=== PATIENT | female | born 2000 | race Caucasian/White ===

== ENCOUNTER 2023-09-06 00:28 | Emergency (ER) | payer SELFPAY ==
[2023-09-06 00:36] VITALS: BP 164/102
[2023-09-06 01:06] VITALS: BMI 18.4
[2023-09-06 02:04] LABS: % Basophils 0.5 % (0-2); % Eosinophils 0.2 % (0-6); % Immature Granulocytes 0.2 % (0-0.5); % Lymphocytes 20.5 % (20.5-51.1); % Monocytes 5.8 % (1.7-9.3); % Neutrophils 72.8 % (42.2-75.2); Absolute Basophils 0.1 10^3/uL (0-0.2); Absolute Lymphocytes 2.7 10^3/uL (1.2-3.4); Absolute Monocytes 0.8 10^3/uL (0.1-0.6); Absolute Neutrophils 9.5 10^3/uL (1.4-6.5); Hematocrit 37.3 % (37.0-47.0); Hemoglobin 12.8 g/dL (12.0-16.0); Mean Corp Hgb Conc. 34.3 g/dL (33.0-37.0); Mean Corpuscular Hgb 31.1 pg (27.0-31.0); Mean Corpuscular Volume 90.5 fL (81.0-99.0); Mean Platelet Volume 10.3 fL (7.4-10.4); Nucleated Red Blood Cells % 0 %; Platelet Count 255 10^3/uL (130-400); Red Blood Cell Count 4.12 10^6/uL (4.20-5.40); Red Cell Dist. Width 12.2 % (11.5-14.5); White Blood Cell Count 13.1 10^3/uL (4.8-10.8)
--- NOTE | 2023-09-06 02:07 | ED.GENMED ---
History of Present Illness
General
Chief Complaint: Extremity Pain (non-traumatic)
Source: patient
Exam Limitations: none
Time Seen by Provider: 09/06/23 01:34
Travel History
Have you had any contact with someone who has COVID-19?: No
Do you have any symptoms of coronavirus? Fever > 100 degrees, chills, cough, shortness of breath, sore throat, loss of taste or smell, muscle aches, or headache?: No
History of Present Illness
History of Present Illness:
23-year-old female complaining of tingling in both arms this evening around 11 PM while getting ready for bed. Also was short of breath and hyperventilating apparently during this. Mom confirm the rapid breathing. Has been having intermittent
left arm tingling for months. Sleep feels slightly foggy. No true headache visual issues or other neurologic issues.
Past History
Past History
ED Past Medical History: None
Review of Systems
Review of Systems
All Other Systems: Not applicable
Constitutional: Denies fever
Cardiac: Denies chest pain or syncope
Phy Exam
Physical Exam
Physical Exam:
GENERAL: Alert and oriented in no apparent distress
EYE: Orbits normal. Extraocular muscles intact
NECK: Supple, no carotid bruit
ENT: Pharynx without erythema
CARDIAC: Regular rate and rhythm without any obvious murmurs.
LUNGS: Clear breath sounds,normal
ABDOMEN: Soft, without focal tenderness or distention
NEUROLOGICAL: Alert and oriented , cranial nerves II through XII intact. Speech normal. No drift. [id number] normal. [id number] normal. Light touch intact
SKIN: Warm and dry, no rash or lesion, no discoloration, skin intact.
MUSCULOSKELETAL: No edema,no deformity.Good color
PSYCH: Normal and appropriate interaction.
Course
Orders/Labs/Results
Orders:
Orders
09/06/23 01:08
EKG [Electrocardiogram (*1)] Urgent
Reason for Study: Vertigo / Dizzy
09/06/23 01:11
EKG- Treatment ONCE
09/06/23 01:44
CT Head W/o Iv Contrast Urgent
Comment:
Reason For Exam: Left arm paresthesias
09/06/23 01:45
Test Result ONCE
09/06/23 01:55
Basic Metabolic Panel Urgent
Complete Blood Count/With Diff Urgent
D-Dimer Urgent
HCG, Serum Qualitative Screen Urgent
TSH Reflex To Free T4 Urgent
Abnormal Lab Results
09/06/23
01:55
WBC 13.1 H 10^3/uL
(4.8-10.8)
RBC 4.12 L 10^6/uL
(4.20-5.40)
MCH 31.1 H pg
(27.0-31.0)
Absolute Neuts (auto) 9.5 H 10^3/uL
(1.4-6.5)
Absolute Monos (auto) 0.8 H 10^3/uL
(0.1-0.6)
Chloride 109 H mmol/L
(98-107)
Glucose 107 H mg/dl
(70-99)
09/06/23 01:55
09/06/23 01:55
Vital Signs
Initial and Last Documented VS:
Initial Vital Signs
Temp Pulse Resp BP Pulse Ox
98.3 F 135 18 164/102 99
09/06/23 00:36 09/06/23 00:36 09/06/23 00:36 09/06/23 00:36 09/06/23 00:36
Last Documented Vital Signs
Temp Pulse Resp BP Pulse Ox
98.3 F 94 18 113/78 99
09/06/23 00:36 09/06/23 02:36 09/06/23 02:36 09/06/23 02:36 09/06/23 02:36
MDM/Problems Addressed
Differential Diagnosis Includes:
Patient's description of tonight's event would be most consistent with hyperventilation and carpopedal spasm. She is describing some intermittent radiculopathy symptoms of the left arm for months. She clinically has a normal neurologic exam and a
benign exam. She was borderline tachycardic on arrival. Workup will include thyroid evaluation electrolytes blood sugar D-dimer and head CT.
*Critical Care Note
Total Time (30-74mins, 75-104mins- exclusive of procedures): Not Applicable
Update Note
Update Note:
Nonspecific leukocytosis with all other testing negative. Benign exam. Benign neurologic exam. Stable for discharge to follow-up
ED Attending Note
-
Portions of this chart may have been created with voice recognition software.� Occasional wrong word or��sound alike� substitutions may have occurred due to the inherent limitations of voice recognition software.
Discharge Plan
Departure
Patient Disposition: Home (Routine Discharge)
Date of Disposition: 09/06/23
Time of Disposition: 03:01
Patient with high blood pressure during this ER visit?: No
Discharge Problem:
Paresthesias
Instructions: Paresthesia (DC)
Referrals:
Shawn Parry MD [Family Provider] - Follow up in 2-3 days
Interventions
Interventions:
*Risk Screen - Suicide Last Done: 09/06/23 03:12
*General Assessment Last Done: 09/06/23 00:36
*Neglect/Abuse Screening Last Done: 09/06/23 03:12
ED- Fall Risk Assessment Last Done: 09/06/23 03:12
*ED COVID-19 Vaccine History Last Done: 09/06/23 03:12
*Nursing Disposition Last Done: 09/06/23 03:12
ED-Skin Assessment Last Done: 09/06/23 01:06
ED-Peripheral Vascular Assessment Last Done: 09/06/23 01:06
ED-Musculoskeletal Assessment Last Done: 09/06/23 01:06
Discharge Date and Time
Discharge Date/Time: 09/06/23 03:13
Print Language: MALDIVIAN
[2023-09-06 02:15] LABS: HCG, Serum Qualitative Screen Negative
[2023-09-06 02:18] LABS: Blood Urea Nitrogen 12 mg/dl (7-17); Calcium 9.6 mg/dl (8.4-10.2); Carbon Dioxide 22 mmol/L (22-30); Chloride 109 mmol/L (98-107); Estimated Creatinine Clearance 93 ml/min; Glucose 107 mg/dl (70-99); Potassium 3.6 mmol/L (3.5-5.1); Sodium 141 mmol/L (135-145); eGFR > 60.00
[2023-09-06 02:36] VITALS: BP 113/78
[2023-09-06 02:49] LABS: TSH Reflex To Free T4 1.19 uIU/ml (0.47-4.68)
[2023-09-06 02:59] LABS: D-Dimer < 0.27 ug/mlFEU (0.00-0.50)
== END 2023-09-06 03:13 | disposition home or self-care (01) ==
LOC: EMR 00:28
PROVIDERS: EMERGENCY PHYSICIAN Emergency Medicine
DX: R20.2 Paresthesia of skin (principal)
CPT/HCPCS: 99284; 70450; 80048; 84443; 84703; 85025; 85379; 93005